=== PATIENT | female | born 1955 | race Caucasian/White ===

== ENCOUNTER 2023-05-15 15:20 | Emergency (ER) | payer MEDICARE, BC, SELFPAY ==
[2023-05-15 15:27] VITALS: BP 136/74; PULSE 75; RESP 18; TEMP 36.5; O2SAT 94; BMI 31.1
--- NOTE | 2023-05-15 16:00 | ED.GENADULT ---
HPI - General Adult General Date Seen: 05/15/23 Chief complaint: Headache/Migraine Stated complaint: Facial Pain Time Seen by Provider: 05/15/23 15:33 Source: patient Mode of arrival: ambulatory Limitations: no limitations History of Present Illness HPI narrative: Patient is a 67-year-old woman who says for the past 1-2 days she has been having pain in her left lower face. She says it is primarily in the cheek and maxillary area although sometimes it seems to go down into the chin as well. She has not had any redness or swelling. She does have a tooth in her upper molar which had been cold sensitive, she says the dentist in December did not think there was a problem. She started using a toothpaste for sensitivity and that seemed to help a little bit. She says the pain is a throbbing and constant although it will accelerating get more severe at times. Response to leave. She has not had fevers, congestion upper respiratory symptoms or any other complaints. She does have a history of [place] syndrome on that side previously. Has not noted a rash. Related Data Home Medications Medication Instructions Recorded Confirmed metformin 500 mg tablet 500 mg PO DAILY 05/15/23 05/15/23 Allergies Allergy/AdvReac Type Severity Reaction Status Date / Time No Known Drug Allergies Allergy Verified 05/15/23 15:29 Review of Systems Status of ROS: Reports: 6 or more systems reviewed and unremarkable except as noted in History and below [facility] Social History Smoking Status: Never smoker How often do you have a drink containing alcohol: 2-4 times a month How many standard drinks containing alcohol do you have on a typical day: 1 or 2 How often do you have six or more drinks on one occasion: Never AUDIT-C Alcohol total score: 2 Non-prescribed substance use: denies use service: No Exam Narrative: Exam Narrative: Vital signs as noted above. In general, an alert, well-appearing patient. She looks comfortable. Head: Normocephalic, atraumatic. Eyes: Pupils are equal reactive. Extraocular movements are full. Conjunctivae are normal. ENT: Mucous membranes are moist. Throat is normal. Dentition is intact, no evidence of abscess. Neck: Supple without lymphadenopathy. Extremities: Well perfused. Neurologic: Patient is alert and oriented to person and place. Speech is fluent. Face is symmetric. Moves all extremities equally. Affect: Normal. Skin: Warm and dry. Well perfused. Const: Vital Signs, click to edit/add: Vital Signs - 24 hr 05/15/23 15:27 Temperature 97.7 F Pulse Rate [Right Pulse Oximeter] 75 Respiratory Rate 18 Blood Pressure [Le ft Upper Arm] 136/74 Pulse Oximetry 94 Oxygen Delivery Me thod Room Air Documenting provider has reviewed patient's vital signs: yes Course Course Hospital Course: Exam is unrevealing. Patient wondered about possible sinus infection, discussed that it is somewhat atypical given that she does not have any congestion. I think her symptoms could be related to a dental problem with the root of her tooth that had been previously cold sensitive, but I do not see any evidence of abscess. I think it is reasonable to treat her with Augmentin which may help with a dental process as well as a possible sinusitis. We also discussed that this could be trigeminal neuralgia although it is atypical and I would not expect that to respond well to leave. We also discussed the possibility of shingles of developing, despite the absence of current rash. I have recommended that she see her dentist just have that to 3 checked, and if she does not respond to the antibiotic otherwise and the tooth is fine, would recommend primary care follow-up. If she develops a rash, she should return for re-evaluation. Vital Signs Vital signs: Initial Vital Signs Temperature 97.7 F 05/15/23 15:27 Temperature Source Temporal Artery Scan 05/15/23 15:27 Pulse Rate 75 05/15/23 15:27 Respiratory Rate 18 05/15/23 15:27 Blood Pressure 136/74 05/15/23 15:27 Blood Pressure Mean 94 05/15/23 15:27 Blood Pressure Position Sitting 05/15/23 15:27 Pulse Oximetry 94 05/15/23 15:27 Oxygen Delivery Method Room Air 05/15/23 15:27 Vital Signs Temperature 97.7 F 05/15/23 15:27 Pulse Rate 75 05/15/23 15:27 Respiratory Rate 18 05/15/23 15:27 Blood Pressure 136/74 05/15/23 15:27 Pulse Oximetry 94 05/15/23 15:27 Oxygen Delivery Method Room Air 05/15/23 15:27 Temperature 97.7 F 05/15/23 15:27 Pulse Rate 75 05/15/23 15:27 Respiratory Rate 18 05/15/23 15:27 Blood Pressure 136/74 05/15/23 15:27 Pulse Oximetry 94 05/15/23 15:27 Oxygen Delivery Method Room Air 05/15/23 15:27 Discharge Plan Discharge Clinical Impression: Acute facial pain Patient Disposition: Home, Self-Care Condition: Stable Instructions: Atypical Facial Pain (ED) Additional Instructions: Antibiotic as prescribed. I would recommend dental followup to have that tooth checked. If you develop a rash on that side of your face, return or see her primary doctor. If you have significant worsening, developed redness, fevers, severe pain, he should be seen again for re-evaluation. Prescriptions: No Action metformin 500 mg tablet 500 mg PO DAILY Stand Alone Forms: [employer] Info Instructions
== END 2023-05-15 16:04 | disposition home or self-care (01) ==
PROVIDERS: Emergency Provider Emergency Medicine
DX: G50.1 Atypical facial pain (principal)
CPT/HCPCS: 99283; 99284